=== PATIENT | female | born 1935 | race Caucasian/White ===

== ENCOUNTER → 2020-04-28 | Outpatient (CLI) | payer BC, MEDICARE ==
[2020-04-28 19:16] LABS: African American GFR (CKD) 48.7 (60.0-200.0); Anion Gap 9.6 mmol/L (4.00-12.00); BUN/Creat Ratio 18.33 Ratio (12.00-20.00); Calcium 9.9 mg/dL (8.7-10.3); Carbon Dioxide 26.4 mmol/L (21.6-31.8); Non-African American GFR(CKD) 42.1 (60.0-200.0); Potassium 4.5 mmol/L (3.5-5.5)
== END | disposition home or self-care (01) ==
LOC: LABWHC1 11:42
DX: R79.89 Other specified abnormal findings of blood chemistry (principal)
CPT/HCPCS: 36415; 80048

== ENCOUNTER → 2020-06-09 | Outpatient (CLI) | payer BC, MEDICARE ==
--- NOTE | 2020-06-10 14:00 | US ---
EXAMINATION TYPE: US kidneys/renal and bladder DATE OF EXAM: 06/09/2020 COMPARISON: NONE CLINICAL HISTORY: Stage 3 Kidney disease N18.32. EXAM MEASUREMENTS: Right Kidney: 9.1 x 4.0 x 4.4 cm Left Kidney: 8.8 x 5.2 x 4.9 cm Post Void Residual Volume: 11.3 mL Right Kidney: couple or renal cysts seen with larger cyst seen upper lateral cortex = 0.9 x 0.8 x 0. 9cm; mid sinus prominent fluid area seen Left Kidney: multiple renal renal cysts seen with largest as cluster at mid lower cortex = 1.7 x 1.6 x 1.3cm. Bladder: thickened wall = 6.8mm Bilateral Jets seen: yes Normal Post Void Residual: yes Cortical thinning both kidneys with increased cortical echogenicity and small scattered thin-walled c ysts. No suspicious solid masses are identified bilaterally. No hydronephrosis is seen bilaterally. The urinary bladder is not greatly distended. [id number] concentric abnormal wall thickening up to 7 mm. After voiding minimal residual urine Bilateral ureteral jets are seen. IMPRESSION: Evidence of chronic medical renal disease. No hydronephrosis noted bilaterally. Correlate for chronic outlet obstruction or acute cystitis.
== END | disposition home or self-care (01) ==
LOC: RADUSWWP 15:45
PROVIDERS: ATTEND Internal Medicine
DX: N18.32 Chronic kidney disease, stage 3b (principal)
CPT/HCPCS: 76770

== ENCOUNTER → 2021-05-03 | Outpatient (CLI) | payer BC, MEDICARE ==
--- NOTE | 2021-05-03 15:31 | US ---
EXAMINATION TYPE: US kidneys/renal and bladder DATE OF EXAM: 05/03/2021 COMPARISON: NONE CLINICAL HISTORY: N18.32 stage 3b chronic kidney disease. CKD EXAM MEASUREMENTS: Right Kidney: 9.2 x 4.7 x 3.8 cm Left Kidney: 10.3 x 4.8 x 3.5 cm *technical limitations due to large amount of overlying bowel content Right Kidney: echogenic, thin renal cortex, prominent renal pelvis is again noted Left Kidney: echogenic, thin renal cortex, cystic area = 1.3 x 1.6 x 1.4cm Bladder: appears wnl Bilateral Jets seen: yes There is no evidence for hydronephrosis at this point in time on the left. No nephrolithiasis is see n. Cortical medullary differentiation is maintained. No masses are identified. The urinary bladder is anechoic. Bilateral ureteral jets are seen. IMPRESSION: Some mild pelvic caliectasis is again noted on the right, cortical thinning suggest medical renal dis ease. Exam is limited technically.
[2021-05-03 15:32] LABS: Phosphorus 3.2 mg/dL (2.5-4.5); Potassium 4.6 mmol/L (3.5-5.1)
[2021-05-03 15:36] LABS: Basophils # (A) 0.1 k/uL (0-0.2); Basophils % (A) 1 %; Eosinophils # (A) 0.2 k/uL (0-0.7); Eosinophils % (A) 5 %; HCT 44.9 % (34.0-46.0); HGB 15.3 gm/dL (11.4-16.0); Lymphocytes # (A) 1.1 k/uL (1.0-4.8); Lymphocytes % (A) 24 %; MCH 31.8 pg (25.0-35.0); MCV 93.5 fL (80.0-100.0); Mean Platelet Volume 7.9; Monocytes # (A) 0.2 k/uL (0-1.0); Monocytes % (A) 5 %; Neutrophils # (A) 2.8 k/uL (1.3-7.7); Neutrophils % (A) 61 %; Platelet Count 174 k/uL (150-450); RDW 13.2 % (11.5-15.5); WBC 4.6 k/uL (3.8-10.6)
== END | disposition home or self-care (01) ==
LOC: RADUSWWP 14:16
PROVIDERS: ATTEND Internal Medicine
DX: N18.32 Chronic kidney disease, stage 3b (principal); N32.89 Other specified disorders of bladder
CPT/HCPCS: 76770; 80048; 82306; 83970; 84100; 85025

== ENCOUNTER → 2022-06-27 | Outpatient (CLI) | payer BC, MEDICARE ==
[2022-06-27 15:04] LABS: ALT 13 U/L (8-44); AST 24 U/L (13-35); African American GFR (CKD) 58.1 (60.0-200.0); Albumin 3.7 g/dL (3.8-4.9); Albumin/Globulin Ratio 1.67 (1.60-3.17); Alkaline Phosphatase 52 U/L (41-126); BUN/Creat Ratio 20.88 Ratio (12.00-20.00); Blood Urea Nitrogen 21.3 mg/dL (9.0-27.0); Calcium 9.9 mg/dL (8.7-10.3); Carbon Dioxide 27.6 mmol/L (20.0-27.5); Chloride 105 mmol/L (96-109); Chol/HDL Ratio 2.11 Ratio; Globulin 2.2 g/dL (1.6-3.3); Glucose 85 mg/dL (70-110); LDL Cholesterol,Calculated 99.2 mg/dL (0.0-131.0); Non-African American GFR(CKD) 50.1 (60.0-200.0); Potassium 4.5 mmol/L (3.5-5.5); Sodium 141 mmol/L (135-145); VLDL Calculation 10.18 mg/dL (5.00-40.00)
== END | disposition home or self-care (01) ==
LOC: LABWHC1 09:16
PROVIDERS: ATTEND Family Medicine
DX: Z13.220 Encounter for screening for lipoid disorders (principal)
CPT/HCPCS: 36415; 80053; 80061; 83036

== ENCOUNTER → 2023-07-22 | Outpatient (CLI) | payer BC, MEDICARE ==
[2023-07-22 15:49] LABS: ALT 15 U/L (8-44); AST 20 U/L (13-35); Albumin 3.8 g/dL (3.8-4.9); Albumin/Globulin Ratio 1.81 Ratio (1.60-3.17); Alkaline Phosphatase 54 U/L (41-126); Blood Urea Nitrogen 19.7 mg/dL (9.0-27.0); Carbon Dioxide 25.9 mmol/L (21.6-31.8); Chloride 107 mmol/L (96-109); Chol/HDL Ratio 2.34 Ratio; Globulin 2.1 g/dL (1.6-3.3); Glucose 89 mg/dL (70-110); LDL Cholesterol,Calculated 96.7 mg/dL (0.0-131.0); Potassium 4.4 mmol/L (3.5-5.5); Sodium 142 mmol/L (135-145); Total Bilirubin 0.6 mg/dL (0.3-1.2); Total Protein 5.9 g/dL (6.2-8.2); VLDL Calculation 14.44 mg/dL (5.00-40.00)
== END | disposition home or self-care (01) ==
LOC: LABWHC1 10:34
PROVIDERS: ATTEND Family Medicine
DX: Z13.1 Encounter for screening for diabetes mellitus (principal); Z13.220 Encounter for screening for lipoid disorders; N18.31 Chronic kidney disease, stage 3a
CPT/HCPCS: 36415; 80053; 80061; 83036

== ENCOUNTER → 2024-06-22 | Outpatient (CLI) | payer BC, MEDICARE ==
[2024-06-22 16:22] LABS: ALT 15 U/L (8-44); AST 24 U/L (13-35); Albumin 3.8 g/dL (3.8-4.9); Albumin/Globulin Ratio 1.65 Ratio (1.60-3.17); Alkaline Phosphatase 58 U/L (41-126); Blood Urea Nitrogen 26.1 mg/dL (9.0-27.0); Calcium 9.7 mg/dL (8.7-10.3); Carbon Dioxide 23.5 mmol/L (21.6-31.8); Chloride 107 mmol/L (96-109); Chol/HDL Ratio 2.37 Ratio; Globulin 2.3 g/dL (1.6-3.3); Glucose 99 mg/dL (70-110); LDL Cholesterol,Calculated 97.6 mg/dL (0.0-131.0); Potassium 4.5 mmol/L (3.5-5.5); Sodium 141 mmol/L (135-145); Total Bilirubin 0.4 mg/dL (0.3-1.2); Total Protein 6.1 g/dL (6.2-8.2); VLDL Calculation 14.64 mg/dL (5.00-40.00)
[2024-06-22 17:00] LABS: HCT 43.4 % (37.2-46.3); HGB 14.4 g/dL (12.0-15.0); MCH 30.8 pg (27.0-32.0); MCHC 33.2 g/dL (32.0-37.0); MCV 92.9 FL (80.0-97.0); Mean Platelet Volume 10.8 FL (9.5-12.2); NRBC Per 100 WBC 0 X 10*3/uL (0.00-0.01); Platelet Count 159 X 10*3/uL (140-440); RBC 4.67 X 10*6/uL (4.10-5.20); RDW 13.6 % (11.5-14.5); WBC 5.81 X 10*3/uL (4.50-10.00)
== END | disposition home or self-care (01) ==
LOC: LABWHC1 10:46
PROVIDERS: ATTEND Family Medicine
DX: Z00.00 Encounter for general adult medical examination without abnormal findings (principal); D69.6 Thrombocytopenia, unspecified; Z13.1 Encounter for screening for diabetes mellitus; Z13.220 Encounter for screening for lipoid disorders
CPT/HCPCS: 36415; 80053; 80061; 83036; 85027